=== PATIENT | male | born 1955 | race Caucasian/White ===

== ENCOUNTER → 2016-11-07 | Outpatient (CLI) | payer OTHER | LOC: BMCIMAGING 09:10 | PROVIDERS: ATTEND Emergency Medicine | DX: R05 Cough (principal); R61 Generalized hyperhidrosis ==

== ENCOUNTER 2016-11-09 08:51 | Inpatient (IN) | payer OTHER ==
--- NOTE | 2016-11-09 09:11 | EDPHY ---
H & P Stated Complaint: tx for PNA/increasing pain l upper back and rib area - Personal History Current Tetanus/Diphtheria Vaccine: Yes - Medical/Surgical History Hx Asthma: No Hx Chronic Respiratory Disease: No Hx Diabetes: No Hx Cardiac Disease: No Hx Renal Disease: No Hx Cirrhosis: No Hx Alcoholism: No Hx HIV/AIDS: No Hx Splenectomy or Spleen Trauma: No Other PMH: back surg/PNA - Social History Smoking Status: Never smoked Time Seen by Provider: 11/09/16 09:01 HPI/ROS: CHIEF COMPLAINT: left side back pain HISTORY OF PRESENT ILLNESS: 61-year-old male arrives via private vehicle complaining of ongoing left sided back pain. Pain is described as pleuritic . Symptoms 1st started on October 30 when he had been experiencing antecedent URI symptoms and on start experiencing fever, chills, soaking the sheets at night. Saw his primary care provider was diagnosed with left-sided pneumonia , started on antibiotics at that time. He then went to [place] and returned few days ago. Symptoms continue. Saw his primary care provider 2 days ago, and repeat x-ray showing residual pneumonia was changed to clarithromycin which he has been taking. However the pain has been keeping him up at night. Pain is reproducible with deep inspiration and with coughing. He has prior history of nephrolithiasis but describes this pain as being significantly different. He has not taken opiate analgesia noting he does not like the adverse effects. PRIMARY CARE PROVIDER: Zuly REVIEW OF SYSTEMS: A ten point review of systems was performed and is negative with the exception of the items mentioned in the HPI PAST MEDICAL & SURGICAL HISTORY: no History of cardiac disease. No history of thromboembolic disorder. SOCIAL HISTORY:Nonsmoker. No illicit drug use. No cocaine use . 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 PHYSICAL EXAM (Prior to examination, patient consented to physical exam, hands were washed and my usual and customary physical exam procedures followed) 1) GENERAL: Well-developed, well-nourished, alert and oriented. Appears Uncomfortable. 2) HEAD: Normocephalic, atraumatic 3) HEENT: Pupils equal, round, reactive to light bilaterally. Sclera anicteric. 4) NECK: Full range of motion, no meningeal signs. 5) LUNGS: Clear auscultation bilaterally, no wheezes, no rhonchi, no retractions. 6) HEART: Regular rate and rhythm, no murmur, no heave, no gallop. 7) ABDOMEN: No guarding, no rebound, no focal tenderness, negative McBurney's, 8) MUSCULOSKELETAL: Moving all extremities, no focal areas of tenderness, no obvious trauma. No peripheral edema or discoloration. 9) BACK: No CVA tenderness no visual or palpable abnormality. 10) SKIN: No rash, no petechiae. 11) Psychiatric: Patient is oriented X 3, there is no agitation. DIFFERENTIAL DIAGNOSIS: In no particular order including but not limited to pneumonia, pleurisy, pulmonary embolus, aortic dissection, [place] (Rusty Montalvo) Constitutional: Initial Vital Signs Temperature (C) 37 C 11/09/16 08:56 Heart Rate 77 11/09/16 08:56 Respiratory Rate 20 11/09/16 08:56 Blood Pressure 111/71 11/09/16 08:56 O2 Sat (%) 94 11/09/16 08:56 O2 Delivery Mode Room Air Allergies/Adverse Reactions: No Known Allergies Allergy (Verified 11/09/16 08:56) Home Medications: Medication Instructions Recorded Albuterol Sulfate [Ventolin Hfa] 1 - 2 puffs IH Q4 PRN 11/09/16 Amoxicillin/Clavulanate Pot 875 mg PO BID 11/09/16 [Augmentin 875 MG TAB (*)] Clarithromycin [Biaxin (*)] 500 mg PO DAILY 11/09/16 Medical Decision Making - Diagnostics Imaging Results: Imaging Impressions Chest/Thorax CTA 11/09/16 10:38 Impression: 1. Positive moderate volume pulmonary thromboemboli in the left lower lobe. 2. No pleural effusion or pneumothorax. Findings and recommendations discussed with Emergency DepartmentSukhwinder PA-C, at 1200 hours on November 09, 2016. Final report concurs with initial preliminary interpretation. ED Course/Re-evaluation: 9:20 am: 10:37 a.m.: Patient has an elevated D-dimer of 2.14. In the presence of a pleuritic chest pain I have recommended CT imaging. Indications risks benefits of CT imaging discussed with patient and he verbalizes consent. 12:02 p.m.: Phone consultation with hospitalist Tata, admit to Dr. De La O ( Rusty Montalvo) Other Provider: PHYSICIAN DOCUMENTATION: The patient was evaluated and managed by the Physician Crane Ladle Person and myself. I have reviewed the chart and agree with the findings and plan of care as documented. In addition, I examined the patient myself at 1200. History confirmed as left-sided chest pain, cough for greater than 1 week. Physical findings as follows: Alert and speaking in full sentences. Vital signs reviewed. CT angiography personally interpreted by myself, and reviewed with the patient and his family. Moderate volume left lower lung pulmonary embolism. Anticoagulation discussed and consented, 80 mg Lovenox SQ, admit hospitalist to [facility]. I am the secondary supervising physician. (Sam Ramos) - Data Points Laboratory Results: Laboratory Results 11/09/16 09:18 11/09/16 09:18 11/09/16 11/09/16 11/09/16 09:18 09:18 09:18 WBC 7.41 10^3/uL 10^3/uL (3.80-9.50) RBC 4.84 10^6/uL 10^6/uL (4.40-6.38) Hgb 14.3 g/dL g/dL (13.7-17.5) Hct 42.2 % % (40.0-51.0) MCV 87.2 fL fL (81.5-99.8) MCH 29.5 pg pg (27.9-34.1) MCHC 33.9 g/dL g/dL (32.4-36.7) RDW 12.5 % % (11.5-15.2) Plt Count 234 10^3/uL D 10^3/uL (150-400) MPV 9.0 fL fL (8.7-11.7) Neut % (Auto) 58.1 % % (39.3-74.2) Lymph % (Auto) 27.5 % % (15.0-45.0) Douglas % (Auto) 13.5 % H % (4.5-13.0) Eos % (Auto) 0.0 % L % (0.6-7.6) Baso % (Auto) 0.5 % % (0.3-1.7) Nucleat RBC Rel Count 0.0 % % (0.0-0.2) Absolute Neuts (auto) 4.30 10^3/uL 10^3/uL (1.70-6.50) Absolute Lymphs (auto) 2.04 10^3/uL 10^3/uL (1.00-3.00) Absolute Monos (auto) 1.00 10^3/uL H 10^3/uL (0.30-0.80) Absolute Eos (auto) 0.00 10^3/uL L 10^3/uL (0.03-0.40) Absolute Basos (auto) 0.04 10^3/uL 10^3/uL (0.02-0.10) Absolute Nucleated RBC 0.00 10^3/uL 10^3/uL (0-0.01) Immature Gran % 0.4 % % (0.0-1.1) Immature Gran # 0.03 10^3/uL 10^3/uL (0.00-0.10) D-Dimer 2.14 ug/mLFEU H ug/mLFEU (0.00-0.50) Sodium 139 mEq/L mEq/L (134-144) Potassium 4.1 mEq/L mEq/L (3.5-5.2) Chloride 104 mEq/L mEq/L (97-110) Carbon Dioxide 22 mEq/l mEq/l (22-31) Anion Gap 13 mEq/L mEq/L (8-16) BUN 13 mg/dL mg/dL (7-23) Creatinine 0.9 mg/dL mg/dL (0.7-1.3) Estimated GFR > 60 Glucose 184 mg/dL H mg/dL (70-100) Calcium 9.1 mg/dL mg/dL (8.5-10.4) Troponin I < 0.012 ng/mL ng/mL (0-0.034) Medications Given: Discontinued Medications Enoxaparin Sodium (Lovenox) 80 mg SC EDNOW ONE Stop: 11/09/16 11:55 Last Admin: 11/09/16 12:27 Dose: 80 mg Departure - Departure Disposition: [facility] Inpatient Acute Clinical Impression: Pulmonary embolism Qualifiers: Pulmonary embolism type: other Chronicity: acute Acute cor pulmonale presence: without acute cor pulmonale Qualified Code(s): I26.99 - Other pulmonary embolism without acute cor pulmonale Condition: Fair
[2016-11-09 09:27] LABS: % IMMATURE GRANULYOCYTES 0.4 % (0.0-1.1); ABSOLUTE IMMATURE GRANULOCYTES 0.03 10^3/uL (0.00-0.10); ADD DIFF? NO; ADD MORPH? NO; ADD SCAN? NO; ATYPICAL LYMPHOCYTE FLAG 30 (0-99); FRAGMENT RBC FLAG 0 (0-99); HEMATOCRIT 42.2 % (40.0-51.0); HEMOGLOBIN 14.3 g/dL (13.7-17.5); LEFT SHIFT FLG 20 (0-99); LIPEMIA HEMOLYSIS FLAG 90 (0-99); MEAN CELL HEMOGLOBIN 29.5 pg (27.9-34.1); MEAN CELL HEMOGLOBIN CONCENTR. 33.9 g/dL (32.4-36.7); MEAN CELL VOLUME 87.2 fL (81.5-99.8); PLATELET CLUMPS FLAG 10 (0-99); PLATELET COUNT 234 10^3/uL (150-400); RED BLOOD CELL COUNT 4.84 10^6/uL (4.40-6.38); RED CELL DISTRIBUTION WIDTH 12.5 % (11.5-15.2)
--- NOTE | 2016-11-09 09:29 | CPEKG ---
Heart Rate: 72 RR Interval: 833 P-R Interval: 152 QRSD Interval: 96 QT Interval: 380 QTC Interval: 416 P Fanwood: 61 QRS Fanwood: 1 T Wave Fanwood: 92 EKG Severity - BORDERLINE ECG - EKG Impression: SINUS RHYTHM EKG Impression: PROBABLE LEFT ATRIAL ABNORMALITY EKG Impression: BORDERLINE T ABNORMALITIES, LATERAL LEADS Electronically Signed By: Sam Ramos 09-Nov-2016 09:39:13
[2016-11-09 09:39] LABS: ANION GAP 13 mEq/L (8-16); CALCIUM 9.1 mg/dL (8.5-10.4); CARBON DIOXIDE 22 mEq/l (22-31); CHLORIDE 104 mEq/L (97-110); CREATININE 0.9 mg/dL (0.7-1.3); GLOMERULAR FILTRATION RATE > 60; GLUCOSE 184 mg/dL (70-100); POTASSIUM 4.1 mEq/L (3.5-5.2); SODIUM 139 mEq/L (134-144)
[2016-11-09 09:50] LABS: TROPONIN I < 0.012 ng/mL (0-0.034)
[2016-11-09] MEDS ORDERED: IOPAMIDOL (ISOVUE 370) 100 ML BTL IV ONE (11:24)
[2016-11-09] MEDS ORDERED: ENOXAPARIN 80 MG/0.8 ML SYR SC ONE (11:54)
[2016-11-09] MEDS ORDERED: HYDROmorphONE/DILAUDID 1 MG/ML SYR IVP PRN (12:40)
[2016-11-09] MEDS ORDERED: ACETAMINOPHEN 325 MG TAB PO PRN (12:40)
[2016-11-09] MEDS ORDERED: TEMAZEPAM 15 MG CAP PO PRN (12:40)
[2016-11-09] MEDS ORDERED: ONDANSETRON DISINTEGRATING 4 MG TAB PO PRN (12:40)
[2016-11-09] MEDS ORDERED: oxyCODONE IR 5 MG TAB PO PRN (12:40)
[2016-11-09] MEDS ORDERED: ONDANSETRON 4 MG/2 ML VIAL IVP PRN (12:40)
[2016-11-09] MEDS ORDERED: KETOROLAC 30 MG/1 ML SDV IVP ONE (13:19)
--- NOTE | 2016-11-09 13:34 | GHP ---
[f rep st] HISTORY AND PHYSICAL DATE OF ADMISSION: 11/09/2016 CHIEF COMPLAINT: Back pain. 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 He reports that his symptoms started about 11 days ago, with bronchitis, cough, liane e night sweats, overall feeling very poorly with malaise. He was treated for pneumonia with 2 diffe rent antibiotics. He has also received a few chest x-rays for this. He presented to the emergency department today because ongoing pain was getting worse. He has felt somewhat short of breath. His pain is worse with a deep breath. He has no lower extremity edema. He recently started testosterone replacement therapy. He is also taking a number of vitamins and cummins pplements. PAST MEDICAL/SURGICAL HISTORY: Hypotestosterone. MEDICATIONS: Please see medication reconciliation. ALLERGIES: No known drug allergies. FAMILY HISTORY: No venous thromboembolus. SOCIAL HISTORY: He occasionally drinks alcohol. He does not smoke. 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 REVIEW OF SYSTEMS: A 10-point review of systems is conducted and is negative, except per HPI. PHYSICAL EXAM: VITAL SIGNS: Blood pressure is 130/82, heart rate of 65, respiration rate 22, satur ating 97% on room air. Temperature is 37. GENERAL: The patient is a pleasant man who appears some what uncomfortable. HEENT: Normocephalic, atraumatic. CARDIOVASCULAR: Regular rate and rhythm. No murmurs, rubs, or gallops. PULMONARY: Mild crackles at the left base. Otherwise, lungs are mario ar. He is in mild respiratory distress. ABDOMEN: Soft, nontender, nondistended. SKIN: No rash. : No Marti. NEUROLOGIC: Exam shows him to be alert and oriented x3. He has a nonfocal neurolo gic exam. PSYCHIATRIC: Shows him to be mildly tearful, but appropriate affect. EXTREMITIES: Exam shows no bilateral lower extremity edema. LABS: CBC is normal. D-dimer is 2.14. Basic metabolic panel is normal. Troponin is negative. DATA: 1. CT angio, which I personally viewed and interpreted, shows left lower lobe moderate volume PE. 2. I discussed this with Dr. Whitfield, as well as [place]. Will admit to the hospital. IMPRESSION AND PLAN: A 61-year-old man with a pulmonary embolism. 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 In reviewing UpToDate, VTE may be caused by testosterone, aside from its erythrocyto tic potential. I think it is reasonable to call this a provoked PE in this setting. He is hemodyna mically stable, though quite symptomatic from his left-sided chest and back pain. For now, will sta rt him on Lovenox. Discussed novel oral anticoagulants, which he is interested in. He does not wan t narcotics for his pain, I have written him to have Toradol and discussed the slightly increased bl eeding risk with this. He may also use Tylenol. This is a high-risk diagnosis. /[id number]/MODL
[2016-11-09] MEDS: KETOROLAC 15 MG/1 ML SDV IVP SCH (20:33)
[2016-11-09] MEDS: ENOXAPARIN 80 MG/0.8 ML SYR SC SCH (20:34)
[2016-11-10] MEDS: KETOROLAC 15 MG/1 ML SDV IVP SCH ×4 (02:41→17:51)
[2016-11-10] MEDS: ENOXAPARIN 80 MG/0.8 ML SYR SC SCH ×2 (09:17→20:42)
--- NOTE | 2016-11-10 09:25 | HOSPPROG ---
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 - needs outpatient cancer screening # pain - better controlled with toradol - check BMP tomorrow Subjective: L sided chest/back pain better; long discussion with patient and his regarding the dx Objective: Vital Signs Temp Pulse Resp BP Pulse Ox 37.0 C 65 20 108/69 95 11/09/16 23:26 11/10/16 07:48 11/10/16 07:48 11/10/16 07:48 11/10/16 07:48 11/09/16 11/10/16 11/11/16 05:59 05:59 05:59 Intake Total 800 Balance 800 - Time Spent With Patient Time Spent with Patient: greater than 35 minutes Time Spent with Patient: Greater than 35 minutes spent on this patients care, greater than 50% of time spent counseling, educating, and coordinating care regarding the above mentioned plan. ICD10 Worksheet Patient Problems: Problems Problem Status Onset Pulmonary embolism Acute
--- NOTE | 2016-11-10 17:05 | ECHO ---
[id number] + + [address] : : [place] [address] : : [phone] + + Adult Echocardiographic Report + -------+ :Name: RAZIA REID JStudy Date: 11/10/2016 02:56 PM : : Hospital Admission Number: [id number] Locati on: 211: :: 1955 Gender: Male Height: 74 in : :Age: 61 yrs Race: WH Weight: 186 lb : :Reason For Study: Pulmonary embolus : : BSA: 2.1 meter s2 : + -------+ MMode/2D Measurements \T\ Calculations IVSd: 0.61 cm LVIDd: 5.5 cm FS: 45.0 % Ao root diam: LVPWd: 0.85 cm LVIDs: 3.0 cm EDV(Teich): 3.7 cm 145.0 ml LA dimension: ESV(Teich): 4.1 cm 35.1 ml EF(Teich): 75.8 % LVLd ap4: 9.2 cm SV(MOD-sp4): EDV(MOD-sp4): 81.0 ml 111.0 ml LVLs ap4: 7.8 cm ESV(MOD-sp4): 30.0 ml EF(MOD-sp4): 73.0 % Normal Measurement Values: + + :LVIDd (3.5-5.7cm) IVSd (0.6-1.1cm) LVPWd (0.6-1.1cm) Aortic Root (2.0-3.7cm)Left Atrium (1.5-4.0cm): :LV Vol(d) (76-115ml) LV Vol(s) (29-48ml) Ejec Fraction (50-65%)PV Jose Luis (0.6- 1.2m/s) TV Jose Luis (0.4-1.0m/s) : :MV E Jose Luis (0.8-1.0m/s)MV A Jose Luis (0.3-1.0m/s)LVOT Jose Luis (0.7-1.2m/s) Asc Ao Jose Luis ( 0.9-1.8m/s) : + + Doppler Measurements \T\ Calculations MV E max jose luis: 60.2 cm/sec Ao V2 max: 135.7 cm/sec TR max jose luis: 226.7 cm/sec MV A max jose luis: 44.9 cm/sec Ao max P.4 mmHg TR max P.6 mmHg MV E/A: 1.3 RAP systole: 5.0 mmHg RVSP(TR): 25.6 mmHg Left Ventricle The left ventricle is normal in size. There is normal left ventricular wall thickness. Left ventricular systolic function is normal. Ejection Fraction = 65-70%. No regional wall motion abnormalities noted. Right Ventricle The right ventricle is normal in size and function. Atria The left atrium is mildly dilated. Right atrial size is normal. Mitral Valve The mitral valve is normal in structure and function. There is no evidence of mitral valve prolapse. There is no mitral valve stenosis. There is mild mitral regurgitation. Tricuspid Valve Normal tricuspid valve. There is mild tricuspid regurgitation. Right ventricular systolic pressure is normal. Right ventricular systolic pressure is 26mmHg. Aortic Valve The aortic valve is trileaflet. The aortic valve opens well. There is no aortic stenosis. There is no aortic insufficiency. Pulmonic Valve The pulmonic valve is normal in structure and function. There is no pulmonic valvular regurgitation. Great Vessels The aortic root is normal size. Pericardium/Pleural There is no pericardial effusion. Conclusion A complete two-dimensional transthoracic echocardiogram was performed (2D, M-mode, Doppler and color flow Doppler). Left ventricular systolic function is normal. Ejection Fraction = 65-70%. The right ventricle is normal in size and function. The left atrium is mildly dilated. There is mild mitral regurgitation. There is mild tricuspid regurgitation. Right ventricular systolic pressure is normal. Right ventricular systolic pressure is 26mmHg. No prior echo Final Reading Physician: Dr Rozina Dash electronically signed on 11/10/2016 05:04 PM Ordering Physician: Paul De La O Performed By: Vanessa Calvillo RDCS
[2016-11-11] MEDS: KETOROLAC 15 MG/1 ML SDV IVP SCH ×2 (01:56→09:13)
[2016-11-11 04:57] LABS: ANION GAP 12 mEq/L (8-16); CALCIUM 8.6 mg/dL (8.5-10.4); CARBON DIOXIDE 22 mEq/l (22-31); CHLORIDE 106 mEq/L (97-110); CREATININE 0.9 mg/dL (0.7-1.3); GLOMERULAR FILTRATION RATE > 60; GLUCOSE 88 mg/dL (70-100); POTASSIUM 4.5 mEq/L (3.5-5.2); SODIUM 140 mEq/L (134-144)
[2016-11-11 08:12] VITALS: BP 117/75; PULSE 58; RESP 15; TEMP 97.4; O2SAT 90
[2016-11-11] MEDS: ENOXAPARIN 80 MG/0.8 ML SYR SC SCH (09:14)
--- NOTE | 2016-11-11 10:13 | GDS ---
[f rep st] DISCHARGE SUMMARY ALL DIAGNOSES: 1. Acute pulmonary embolus. 2. Recently began hormone replacement with testosterone. 3. Chest pain due to acute pulmonary embolus. 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 Imaging showed this to be an acute left lower lobe pulmonary embolus. He has been hemodynamically stable but quite symptomatic with significant pain. His pain has been adequate ly managed with Toradol. He was initially instituted on Lovenox here, will transition to Eliquis on discharge. 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 I have communicated shruti Weaver who is his nurse practitioner who placed testosterone beads, and she nor the company [employer] do not feel as though there is any increased thromboembolic risk with this formulation of testosterone. I am still waiting to hear from [employer] regarding this specifically. It is unclear whether his symp toms began before or after starting testosterone as well. Notably, echocardiogram showed no evidenc e of right heart strain. I did check a PSA given the above, and his screening PSA was 0.87. He als o had a negative troponin on admission. He is discharged in stable condition. He will follow up with his PCP, Dr. Caruso, tomorrow. I grant ve given him a referral to see Dr. Jordan to discuss his long-term therapeutic options given his prof ession. BILLING: I spent more than 30 minutes on the day of discharge coordinating care. /[id number]/MODL
== END 2016-11-11 11:08 | disposition home or self-care (01) | DRG 176 ==
LOC: F2W 12:39 → OBSVTOIN 11-10 09:16
PROVIDERS: ADMIT Student in an Organized Health Care Education/Training Program; ATTEND Student in an Organized Health Care Education/Training Program
DX: I26.99 Other pulmonary embolism without acute cor pulmonale (principal); Z79.890 Hormone replacement therapy; Z57.9 Occupational exposure to unspecified risk factor; E29.1 Testicular hypofunction; Z98.890 Other specified postprocedural states; Z87.442 Personal history of urinary calculi
CPT/HCPCS: G0103; G0378; J1650; J1885; Q9967

== ENCOUNTER → 2016-12-20 | Outpatient (CLI) | payer OTHER | LOC: BMCIMAGING 11:44 | PROVIDERS: ATTEND Internal Medicine Hematology & Oncology | DX: Z02.89 Encounter for other administrative examinations (principal) ==

== ENCOUNTER → 2017-01-07 | Outpatient (CLI) | payer OTHER ==
[~2017-01-07] MED LIST: IOPAMIDOL (ISOVUE 370) 100 ML BTL IV ONE
== END ==
LOC: FIMAGING 14:40
PROVIDERS: ATTEND Internal Medicine Hematology & Oncology
DX: Z09 Encounter for follow-up examination after completed treatment for conditions other than malignant neoplasm (principal); Z86.711 Personal history of pulmonary embolism
CPT/HCPCS: Q9967

== ENCOUNTER 2017-04-06 20:21 | Observation (INO) | payer OTHER ==
--- NOTE | 2017-04-06 20:30 | EDPHY ---
H & P Time Seen by Provider: 04/06/17 20:27 HPI/ROS: CHIEF COMPLAINT: Seizure-type activity HISTORY OF PRESENT ILLNESS: The patient is a 61-year-old male who presents emergency department after having seizure-like activity. The patient is staying with his son. His son heard a thud and went downstairs. He found his father curled up into a position. Per his report "it looked like he was having a seizure." Some was concerned that he may have struck his chin on the counter prior to falling. The chronometer assembler and adjuster states the glucose was in the 70s. The patient has had improving mental status during their time with him. The patient denies any headache or neck pain. No back pain. Patient states he broke his left collarbone 3 weeks ago and he has mild discomfort at that location. Patient states he has had no recent head trauma. The no recent fevers or chills. No previous seizure activity. The patient states that he had rotator cuff repair, visit his son in [place], and developed a blood clot. This progressed to a pulmonary embolus. He was on Eliquis for 3 months but now is off this medication. REVIEW OF SYSTEMS: My complete review of systems is negative except as mentioned in the HPI. Past Medical/Surgical History: Includes pulmonary embolus, DVT, clavicle fracture. The patient is on testosterone supplementation. Past surgical history: Includes rotator cuff repair Social history: The patient does not smoke. He denies drug use. Smoking Status: Never smoked Physical Exam: Vitals noted GENERAL: Well-appearing, in no acute distress, alert. HEAD: No evidence of trauma. EYES: PERRLA, EOMI, normal to inspection. ENT: Airway intact, no dental or oral injury, no malocclusion, no hemotympanum , normal external examination. No significant tenderness on his chin or jaw. NECK: The trachea is midline. There is no crepitus. The C-spine is nontender. NEXUS criteria is negative (no midline tenderness, no distracting injury, no altered mental status, no recent alcohol use, no focal neurologic deficit). RESPIRATORY: Clear to auscultation bilaterally, no rales, rhonchi or wheezing. There is no crepitus or palpable rib fractures. CVS: Regular rate and rhythm, no rubs, murmurs, or gallops. ABDOMEN: Soft, nontender, nondistended, normal bowel sounds, no bruising or abrasions. Pelvis: Stable. No tenderness palpation. Hips full range of motion. BACK: Normal to inspection, no spinal tenderness, no spinal step off, no notable bruising or abrasions. SKIN: Normal color, warm, dry. No pallor or diaphoresis. EXTREMITIES: Right upper extremity: Atraumatic. No visible signs of trauma. No tenderness palpation. Neurovascular intact distally. Left upper extremity: Atraumatic. No visible signs of trauma. Patient has mild tenderness palpation over his left collarbone. Neurovascular intact distally. Right lower extremity: Atraumatic. No visible signs of trauma. No tenderness palpation. Neurovascular intact distally. Left lower extremity: Atraumatic. No visible signs of trauma. No tenderness palpation. Neurovascular intact distally. NEURO/PSYCH: Higher functions: Alert and Oriented x3. Normal speech and cognition. Normal mood and affect. Cranial nerves: Normal as tested. Cerebellar: Normal as tested. Good finger to nose, good [id number], normal gait. Peripheral exam: Normal motor exam. Normal sensation. Normal reflexes. Constitutional: Initial Vital Signs Temperature (C) 36.9 C 04/06/17 20:43 Heart Rate 63 04/06/17 20:43 Respiratory Rate 16 04/06/17 20:43 Blood Pressure 136/77 H 04/06/17 20:43 O2 Sat (%) 93 04/06/17 20:43 O2 Delivery Mode Room Air Allergies/Adverse Reactions: No Known Allergies Allergy (Verified 04/06/17 20:42) Home Medications: Medication Instructions Recorded Aspirin EC [Aspirin EC 81 mg (*)] 81 mg PO DAILY 04/06/17 Medical Decision Making - Diagnostics Imaging Results: Imaging Impressions Head CT 04/06/17 20:31 Impression: Soft tissue swelling in the right frontal scalp. No evidence for skull fracture. No evidence for acute intracranial abnormality. Results called and discussed with Dr. Genet Burnett on 04/06/2017, 20:55. Clavicle X-Ray 04/06/17 20:32 Impression: Mildly comminuted minimally displaced fracture of the distal left clavicle. ED Course/Re-evaluation: In the emergency department I discussed possible etiologies with the patient and his son. I answered all her questions. Laboratory studies were sent. EKG was ordered. A head CT and a left clavicle x-ray were ordered EKG shows normal sinus rhythm, normal rate, normal axis, normal intervals. There are no ST or T-wave abnormalities. EKG is normal as interpreted by me. 850: The patient's son contact me. He spoke with the patient's . She states that he has been complaining of intermittent left-sided chest pain over the past week. 855: Please refer the dictated report by Dr. Encarnacion. Head CT shows scalp hematoma but no intracranial abnormality. No bleed. No fracture. Clavicle x-ray: Distal comminuted clavicle fracture noted. 905: The patient's white count was elevated at 12. His hemoglobin and hematocrit were normal. Platelets were normal. His chemistry panel was notable for slightly low glucose at 68. His anion gap was 18. Of note his CO2 was 22. Troponin is pending. I discussed case with Dr. Betancourt. She agreed to admit the patient. I discussed the plan with the patient and his son. I answered all their questions. The patient's D-dimer was elevated at greater than 2. Because of this is CT angiogram was ordered. I discussed this with the patient answered their questions. Differential Diagnosis: My differential includes but is not limited to syncope, dysrhythmia, ACS, seizure, mass, malignancy, CVA, electrolyte abnormality, sugar abnormality clavicle contusion, clavicle fracture - Data Points Laboratory Results: Laboratory Results 04/06/17 20:30 04/06/17 20:30 04/06/17 04/06/17 04/06/17 20:30 20:30 20:30 WBC RBC Hgb Hct MCV MCH MCHC RDW Plt Count MPV Neut % (Auto) Lymph % (Auto) [place] % (Auto) Eos % (Auto) Baso % (Auto) Nucleat RBC Rel Count Absolute Neuts (auto) Absolute Lymphs (auto) Absolute Monos (auto) Absolute Eos (auto) Absolute Basos (auto) Absolute Nucleated RBC Immature Gran % Immature Gran # PT 13.4 SEC SEC (12.0-15.0) INR 1.00 (0.83-1.16) APTT 25.8 SEC SEC (23.0-38.0) D-Dimer Cancelled 2.79 ug/mLFEU H ug/mLFEU (0.00-0.50) Sodium 142 mEq/L mEq/L (134-144) Potassium 4.1 mEq/L mEq/L (3.5-5.2) Chloride 102 mEq/L mEq/L (97-110) Carbon Dioxide 22 mEq/l mEq/l (22-31) Anion Gap 18 mEq/L H mEq/L (8-16) BUN 20 mg/dL mg/dL (7-23) Creatinine 1.2 mg/dL mg/dL (0.7-1.3) Estimated GFR > 60 Glucose 68 mg/dL L mg/dL (70-100) Calcium 9.7 mg/dL mg/dL (8.5-10.4) Troponin I < 0.012 ng/mL ng/mL (0.000-0.034) 04/06/17 20:30 WBC 12.20 10^3/uL H 10^3/uL (3.80-9.50) RBC 5.13 10^6/uL 10^6/uL (4.40-6.38) Hgb 16.0 g/dL g/dL (13.7-17.5) Hct 45.6 % % (40.0-51.0) MCV 88.9 fL fL (81.5-99.8) MCH 31.2 pg pg (27.9-34.1) MCHC 35.1 g/dL g/dL (32.4-36.7) RDW 11.5 % % (11.5-15.2) Plt Count 362 10^3/uL 10^3/uL (150-400) MPV 9.7 fL fL (8.7-11.7) Neut % (Auto) 30.8 % L % (39.3-74.2) Lymph % (Auto) 40.2 % % (15.0-45.0) [place]pie % (Auto) 8.7 % % (4.5-13.0) Eos % (Auto) 19.0 % H % (0.6-7.6) Baso % (Auto) 1.1 % % (0.3-1.7) Nucleat RBC Rel Count 0.0 % % (0.0-0.2) Absolute Neuts (auto) 3.74 10^3/uL 10^3/uL (1.70-6.50) Absolute Lymphs (auto) 4.91 10^3/uL H 10^3/uL (1.00-3.00) Absolute Monos (auto) 1.06 10^3/uL H 10^3/uL (0.30-0.80) Absolute Eos (auto) 2.32 10^3/uL H 10^3/uL (0.03-0.40) Absolute Basos (auto) 0.14 10^3/uL H 10^3/uL (0.02-0.10) Absolute Nucleated RBC 0.00 10^3/uL 10^3/uL (0-0.01) Immature Gran % 0.2 % % (0.0-1.1) Immature Gran # 0.03 10^3/uL 10^3/uL (0.00-0.10) PT INR APTT D-Dimer Sodium Potassium Chloride Carbon Dioxide Anion Gap BUN Creatinine Estimated GFR Glucose Calcium Troponin I Medications Given: Discontinued Medications Sodium Chloride (Ns) 1,000 mls @ 0 mls/hr IV ONCE ONE; Wide Open PRN Reason: Protocol Stop: 04/06/17 20:32 Last Admin: 04/06/17 20:55 Dose: 1,000 mls Departure - Departure Disposition: [facility] Acute Clinical Impression: Syncope Qualifiers: Syncope type: unspecified Qualified Code(s): R55 - Syncope and collapse Condition: Good
[2017-04-06] MEDS ORDERED: NS 1,000 ML IV ONE (20:31)
--- NOTE | 2017-04-06 20:33 | CPEKG ---
Heart Rate: 60 RR Interval: 1000 P-R Interval: 168 QRSD Interval: 92 QT Interval: 424 QTC Interval: 424 P Collbran: 58 QRS Collbran: 30 T Wave Collbran: 44 EKG Severity - ABNORMAL ECG - EKG Impression: SINUS RHYTHM EKG Impression: LEFT ATRIAL ABNORMALITY Electronically Signed By: Fareed Page 08-Apr-2017 06:18:41
[2017-04-06 20:43] LABS: % IMMATURE GRANULYOCYTES 0.2 % (0.0-1.1); ABSOLUTE IMMATURE GRANULOCYTES 0.03 10^3/uL (0.00-0.10); ADD DIFF? NO; ADD MORPH? NO; ADD SCAN? NO; ATYPICAL LYMPHOCYTE FLAG 0 (0-99); FRAGMENT RBC FLAG 0 (0-99); HEMATOCRIT 45.6 % (40.0-51.0); LEFT SHIFT FLG 0 (0-99); LIPEMIA HEMOLYSIS FLAG 90 (0-99); MEAN CELL HEMOGLOBIN 31.2 pg (27.9-34.1); MEAN CELL HEMOGLOBIN CONCENTR. 35.1 g/dL (32.4-36.7); MEAN CELL VOLUME 88.9 fL (81.5-99.8); MEAN PLATELET VOLUME 9.7 fL (8.7-11.7); PLATELET CLUMPS FLAG 0 (0-99); PLATELET COUNT 362 10^3/uL (150-400); RED BLOOD CELL COUNT 5.13 10^6/uL (4.40-6.38); RED CELL DISTRIBUTION WIDTH 11.5 % (11.5-15.2)
[2017-04-06 20:51] LABS: PROTIME(PATIENT) 13.4 SEC (12.0-15.0)
[2017-04-06 20:52] LABS: APTT 25.8 SEC (23.0-38.0)
[2017-04-06 20:57] LABS: ANION GAP 18 mEq/L (8-16); CALCIUM 9.7 mg/dL (8.5-10.4); CARBON DIOXIDE 22 mEq/l (22-31); CHLORIDE 102 mEq/L (97-110); CREATININE 1.2 mg/dL (0.7-1.3); GLOMERULAR FILTRATION RATE > 60; GLUCOSE 68 mg/dL (70-100); POTASSIUM 4.1 mEq/L (3.5-5.2); SODIUM 142 mEq/L (134-144)
[2017-04-06 21:09] LABS: TROPONIN I < 0.012 ng/mL (0.000-0.034)
[2017-04-06] MEDS ORDERED: ONDANSETRON 4 MG/2 ML VIAL IVP PRN (21:38)
[2017-04-06] MEDS ORDERED: D50W 25 GM/50 ML SYR IVP ONE (21:38)
[2017-04-06] MEDS ORDERED: ACETAMINOPHEN 325 MG TAB PO PRN (21:38)
[2017-04-06] MEDS ORDERED: ONDANSETRON DISINTEGRATING 4 MG TAB PO PRN (21:38)
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
[2017-04-06] MEDS ORDERED: IOPAMIDOL (ISOVUE 370) 100 ML BTL IV ONE (22:42)
[2017-04-06 22:52] LABS: ETHANOL SERUM 68 mg/dL (0-10)
[2017-04-06] MEDS ORDERED: LORazepam 2 MG/ML INJ IVP PRN (23:43)
[2017-04-07 03:18] LABS: ANION GAP 8 mEq/L (8-16); CALCIUM 8.2 mg/dL (8.5-10.4); CARBON DIOXIDE 26 mEq/l (22-31); CHLORIDE 106 mEq/L (97-110); CREATININE 0.9 mg/dL (0.7-1.3); GLOMERULAR FILTRATION RATE > 60; GLUCOSE 93 mg/dL (70-100); POTASSIUM 4.4 mEq/L (3.5-5.2); SODIUM 140 mEq/L (134-144)
[2017-04-07 03:25] LABS: % IMMATURE GRANULYOCYTES 0.1 % (0.0-1.1); ABSOLUTE IMMATURE GRANULOCYTES 0.01 10^3/uL (0.00-0.10); ADD DIFF? NO; ADD MORPH? NO; ADD SCAN? NO; ATYPICAL LYMPHOCYTE FLAG 0 (0-99); FRAGMENT RBC FLAG 0 (0-99); HEMOGLOBIN 13.8 g/dL (13.7-17.5); LEFT SHIFT FLG 0 (0-99); LIPEMIA HEMOLYSIS FLAG 90 (0-99); MEAN CELL HEMOGLOBIN 31.1 pg (27.9-34.1); MEAN CELL HEMOGLOBIN CONCENTR. 35.4 g/dL (32.4-36.7); MEAN CELL VOLUME 87.8 fL (81.5-99.8); MEAN PLATELET VOLUME 9.2 fL (8.7-11.7); PLATELET CLUMPS FLAG 0 (0-99); PLATELET COUNT 281 10^3/uL (150-400); RED BLOOD CELL COUNT 4.44 10^6/uL (4.40-6.38); RED CELL DISTRIBUTION WIDTH 11.8 % (11.5-15.2)
[2017-04-07] MEDS ORDERED: ASPIRIN EC 81 MG TAB PO SCH (09:00)
[2017-04-07 11:50] VITALS: BP 110/64; RESP 16; TEMP 97.8; O2SAT 95
[2017-04-07 12:07] VITALS: PULSE 55
--- NOTE | 2017-04-07 14:08 | ECHO ---
[email or web address] [address] [address] Main: [phone] Fax: Transthoracic Echocardiogram Name: RAZIA REID MR#: [id number] Study Date: 04/07/2017 Study Time: 08:07 AM Date of : 1955 Age: 61 year(s) Height: 188 cm (74 in.) Weight: 83.01 kg (183 lb.) BSA: 2.09 m2 Gender: Male Examination: Echo Indication: Cardiac: syncope Image Quality: Contrast: Requested by: Carol Betancourt BP: 133 mmHg/73 mmHg Heart Rate: Rhythm: Indication: Cardiac: syncope Procedure Staff [employer] Utility Worker: Vanessa Calvillo Reading Physician: Jamar Ventura Requesting Provider: Conclusions: Normal size left ventricle. Normal global systolic LV function. No regional wall motion abnormality. Right Ventricle: Normal size right ventricle. The mitral valve is normal in appearance and function. Mild mitral valve regurgitation is present. The aortic valve is normal in appearance and function. The tricuspid valve is normal in appearance and function. Measurements: Chambers Valvular Assessment AV/MV Valvular Assessment TV/PV Normal Normal Normal Name Value Range Name Value Range Name Value Range Ao Azra (MM): 3.8 cm (2.2 cm-3.7 AV meanP mmHg ( - ) cm) MV E Vmax: 0.52 m/s ( - ) IVSd (2D): 0.9 cm (0.6 cm-1.1 MV A Vmax: 0.37 m/s ( - ) cm) MV E/A: 1.41 ( - ) LVDd (2D): 5.1 cm (4.2 cm-5.9 cm) LVPWd (2D): 0.8 cm (0.6 cm-1 cm) LVEF (MOD4): 74 % (>=55 %) EF Range: 65-70 % Continued Measurements: Chambers Valvular Assessment AV/MV Name Value Name Value Patient: RAZIA REID Study Date: 04/07/2017 Page 1 of 2 08:07 AM LADs: 3.0 cm MV E/E' Septal: 6.60 LADs Lon.0 cm MV E/E' Lateral: 3.90 LA Area: 20.2 cm2 Findings: Left Ventricle: Normal size left ventricle. Normal global systolic LV function. The ejection fraction is estimated to be 65-70 %. No regional wall motion abnormality. Right Ventricle: Normal size right ventricle. Left Atrium: The left atrium is normal in size. Right Atrium: The right atrium is normal in size. Mitral Valve: The mitral valve is normal in appearance and function. Mild mitral valve regurgitation is present. Aortic Valve: The aortic valve is normal in appearance and function. Tricuspid Valve: The tricuspid valve is normal in appearance and function. Pulmonic Valve: Pulmonary valve not well visualized. Aorta: The aorta is normal. Pericardium: No pericardial effusion. (No Signature Object) Patient: RAZIA REID Study Date: 04/07/2017 Page 2 of 2 08:07 AM [id number]
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
--- NOTE | 2017-04-07 15:27 | CPEEG ---
[f rep st] ELECTROENCEPHALOGRAM DATE OF STUDY: 04/07/2017 INTERPRETATION: Normal EEG during wakefulness and drowsiness. There were no potentially epileptogen ic abnormalities present in the recording. REPORT: This EEG contains 9-10 Hz alpha to the posterior head regions. There was no abnormal activa tion at rest. The patient became briefly drowsy during the study. There was no abnormal activation during brief drowsiness or during times of arousal. /[id number]/MODL
--- NOTE | 2017-04-07 16:51 | NEUROPROG ---
Assessment: [id number] CC: Dr. Carol Betancourt consulted neurology for syncope versus seizure. Results placed in EMR for her review. HPI: Pt admitted to [facility] on 04/06/17 for a passing out event. He cannot recall event. He recalls having had 1 cocktail (not intoxicated per patient) and has no memory of what happened next. His son heard the fall upstairs and when he found his father he noted he was lying on the ground with his eyes open, arms flexed, and not responsive. He had struck his head. EMS was called and the patient regained awareness shortly afterwards. No similar event prior to this or since this. He denied pre-syncope before the passing out event. Neurology was consulted due to concern for seizure. Pt denied significant alcohol use. 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 Oriented x person/place/date . concentration appears normal . speech fluency/comprehension normal . memory appears normal . fund of knowledge appear intact - Cranial Nerves: . II: PERRL, VFFTC . III/IV/: EOMI, no nystagmus, normal smooth pursuits, no Ptosis . V: facial sensation intact to LT . VII: face symmetric to eye closure and smile . VIII: hearing intact to conversation . IX/X: uvula raises symmetrically . XI: SCM 5/5 B/L strength . XII: tongue protrudes midline w/nl strength - Motor: . Tone: normal tone in all 4 extrem . Strength: no pronator drift, strength 5/5 throughout (B/L delt, bic, tri, hand director of medical review, hf/he, df/pf) - Reflexes: B/L bic/BR/patella 2/4 - Sensory: all 4 extrem intact to light touch - Coord: [id number] wnl, REY wnl, [id number] wnl - Gait: deferred Labs: 04/06/17- Ethyl Alcohol 68H 04/07/17- CBC Hct 39L, Chem wnl, Rads: 04/06/17- Head CT: Soft tissue swelling in the right frontal scalp. No evidence for skull fracture. No evidence for acute intracranial abnormality. (I personally visualized the images on 04/06/17) 04/07/17- EEG: normal Assessment: 1. Passing out spell on 04/06/17: Normal neurologic exam on 04/07/17, normal EEG 04/07/17, and normal head CT on 04/06/17. History most consistent with syncope and pt had elevated alcohol levels at time so this could be a vasovagal syncope with associated alcohol use and subsuquent concussion from head injury with fall (to explain prolonged loss of memory). However seizure or cardiac syncope is possible as well. 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 Please re-consult for any change in neurologic status or if additional help is needed. Objective: Vital Signs Temp Pulse Resp BP Pulse Ox 36.6 C 55 L 16 110/64 95 04/07/17 11:50 04/07/17 12:00 04/07/17 11:50 04/07/17 11:50 04/07/17 11:50 Laboratory Results 04/07/17 02:48 04/07/17 02:48 04/06/17 04/07/17 04/08/17 05:59 05:59 05:59 Intake Total 1000 500 Output Total 1925 Balance -925 500 PT 13.4 SEC (12.0-15.0) 04/06/17 20:30 INR 1.00 (0.83-1.16) 04/06/17 20:30 Allergies/Adverse Reactions: No Known Allergies Allergy (Verified 04/06/17 20:42)
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
[2017-04-08 15:48] LABS: C-PEPTIDE 1.5 ng/mL (1.1 - 4.4)
== END 2017-04-07 14:21 | disposition home or self-care (01) ==
LOC: EDUNIT# → F2N 23:51
PROVIDERS: ADMIT Hospitalist; ATTEND Hospitalist
DX: R55 Syncope and collapse (principal); I26.99 Other pulmonary embolism without acute cor pulmonale; S42.002A Fracture of unspecified part of left clavicle, initial encounter for closed fracture; E16.2 Hypoglycemia, unspecified; S00.03XA Contusion of scalp, initial encounter; W18.39XA Other fall on same level, initial encounter; Y92.009 Unspecified place in unspecified non-institutional (private) residence as the place of occurrence of the external cause; J90 Pleural effusion, not elsewhere classified
CPT/HCPCS: 70450; 71275; 73000; 93005; 93306; 95816; G0378; 83525-90; 83527-90; 84681-90; G0480; Q9967